=== PATIENT | female | born 1985 | race Caucasian/White ===

== ENCOUNTER 2025-03-09 14:12 | Emergency (ER) | payer MEDICAID ==
[~2025-03-09] VITALS: Ht 157.5 cm; Wt 52.2 kg
[2025-03-09 14:16] VITALS: O2SAT 99
[2025-03-09 14:18] VITALS: TEMP 37.1; O2SAT 100
[2025-03-09 15:06] LABS: BASOPHILS % 0.6 % (0.0-2.0); EOSINOPHILS % 1.2 % (0.0-5.0); HEMATOCRIT. 40.4 % (36.0-48.0); HEMOGLOBIN. 13.6 g/dL (12.0-16.0); LYMPHOCYTES % 17.3 % (20.0-50.0); MEAN CORPUSCULAR HEMOGLOBIN 32.7 pg (28.0-32.0); MEAN CORPUSCULAR HGB CONC 33.7 g/dL (31.0-37.0); MEAN PLATELET VOLUME 7.7 fl (7.4-10.4); MONOCYTES % 5.5 % (2.0-8.0); NEUTROPHILS % 75.4 % (40.0-76.0); PLATELET 330 x1000/uL (130-400); RED BLOOD CELL COUNT 4.16 mill/uL (4.2-5.4); RED CELL DISTRIBUTION WIDTH 12.9 % (11.6-14.6); WHITE BLOOD COUNT 7.9 x1000/uL (4.5-11.0)
[2025-03-09 15:30] LABS: CHLORIDE 105 mEq/L (98-107); SODIUM 140 mEq/L (136-145)
[2025-03-09 15:31] LABS: CARBON DIOXIDE 25 mEq/L (21-32)
[2025-03-09 15:37] LABS: CREATININE 0.8 mg/dL (0.6-1.0); GLUCOSE 103 mg/dL (70-105); UREA NITROGEN BLOOD 9 mg/dL (9-23)
[2025-03-09 15:39] LABS: ALANINE AMINOTRANSFERASE 14 IU/L (10-49); ALBUMIN 4.3 g/dL (3.2-4.8); ASPARTATE AMINOTRANSFERASE 22 IU/L (<34); BILIRUBIN DIRECT 0.2 mg/dL (<=3.0); BILIRUBIN TOTAL 0.8 mg/dL (0.1-1.0)
[2025-03-09] MEDS: SODIUM CHLORIDE 0.9% 1,000 ML IV ONE ×2 (15:47→17:12)
[2025-03-09 15:49] LABS: CLARITY URINE TURBID (CLEAR); COLOR URINE YELLOW (YELLOW); GLUCOSE URINE NEGATIVE (NEGATIVE); KETONES URINE 3+ (NEGATIVE); LEUKOCYTE ESTERASE URINE TRACE (NEGATIVE); NITRITE URINE NEGATIVE (NEGATIVE); OCCULT BLOOD URINE NEGATIVE (NEGATIVE); PH URINE 7.5 (4.5-8.0); PROTEIN URINE TRACE (NEGATIVE); SPECIFIC GRAVITY URINE 1.014 (1.005-1.030)
[2025-03-09] MEDS: DICYCLOMINE HCL 10MG/ML 2ML VIAL IM ONE (16:03)
[2025-03-09] MEDS: FAMOTIDINE 20MG/2ML VIAL IV ONE (16:04)
[2025-03-09] MEDS: KETOROLAC 30MG/ML VIAL IV ONE (16:04)
[2025-03-09] MEDS: METOCLOPRAMIDE HCL 10MG/2ML VIAL IV ONE (16:04)
[2025-03-09 16:32] LABS: WBC URINE NONE SEEN /hpf (0-2)
[2025-03-09 16:33] LABS: BACTERIA URINE NONE SEEN; RBC URINE NONE SEEN /hpf (0-2); SQUAMOUS EPITHELIAL CELL URINE 3+ /lpf (RARE/1+)
[2025-03-09 16:34] LABS: MUCUS URINE 1+ /lpf (< = 2+)
[2025-03-09] MEDS ORDERED: FAMO-135 MT (17:05)
[2025-03-09] MEDS ORDERED: ONDA-239 PO (17:05)
[2025-03-09] MEDS: ONDANSETRON HCL 4MG/2ML INJ IV ONE (17:12)
[2025-03-09] MEDS: MORPHINE SULFATE 4 MG/ML INJ (FOR IV/IM USE) IV ONE ×2 (19:10→20:11)
[2025-03-09] MEDS: ACETAMINOPHEN 1000MG/100ML 100 ML IV ONE (19:21)
[2025-03-09 20:11] VITALS: BP 166/89; PULSE 75; RESP 14
== END 2025-03-09 21:29 | disposition home or self-care (01) ==
LOC: ER 14:12
DX: R11.2 Nausea with vomiting, unspecified (principal); Z91.013 Allergy to seafood
CPT/HCPCS: 99284; 96365; 96375; 96361; 80076; 80048; 81003; 81025; 83690; 85025; 36415; 96372; 96376; J1885; J0500; J3490; J2765; J2405; J2270; J7030; J0131

== ENCOUNTER 2025-03-11 07:38 | Emergency (ER) | payer MEDICAID ==
[~2025-03-11] VITALS: Ht 165.1 cm; Wt 41.0 kg
[~2025-03-11 07:38] MED LIST: FAMO-135 MT; ONDA-239 PO
[2025-03-11 07:47] VITALS: O2SAT 97
[2025-03-11 08:07] LABS: BASOPHILS % 0.3 % (0.0-2.0); HEMATOCRIT. 42.6 % (36.0-48.0); HEMOGLOBIN. 14.6 g/dL (12.0-16.0); LYMPHOCYTES % 8.6 % (20.0-50.0); MEAN CORPUSCULAR HEMOGLOBIN 32.6 pg (28.0-32.0); MEAN CORPUSCULAR HGB CONC 34.2 g/dL (31.0-37.0); MEAN CORPUSCULAR VOLUME 95.4 fL (81.0-99.0); MEAN PLATELET VOLUME 7.7 fl (7.4-10.4); MONOCYTES % 6.8 % (2.0-8.0); NEUTROPHILS % 84.3 % (40.0-76.0); PLATELET 351 x1000/uL (130-400); RED BLOOD CELL COUNT 4.46 mill/uL (4.2-5.4); RED CELL DISTRIBUTION WIDTH 12.7 % (11.6-14.6); WHITE BLOOD COUNT 9.7 x1000/uL (4.5-11.0)
[2025-03-11 08:11] LABS: CHLORIDE 98 mEq/L (98-107); POTASSIUM 3.2 mEq/L (3.5-5.1); SODIUM 133 mEq/L (136-145)
[2025-03-11] MEDS: KETOROLAC 30MG/ML VIAL IV STA (08:12)
[2025-03-11] MEDS: ONDANSETRON HCL 4MG/2ML INJ IV STA (08:12)
[2025-03-11] MEDS: MAGNESIUM/ALUMINUM HYDROXIDE/SIMETHICONE 30ML UDC PO STA (08:12)
[2025-03-11 08:13] LABS: CALCIUM 10.5 mg/dL (8.7-10.4); CARBON DIOXIDE 21 mEq/L (21-32)
[2025-03-11] MEDS: ACETAMINOPHEN 325MG TABLET PO STA (08:13)
[2025-03-11] MEDS: SODIUM CHLORIDE 0.9% 1,000 ML IV ONE (08:17)
[2025-03-11 08:18] LABS: GLUCOSE 105 mg/dL (70-105); UREA NITROGEN BLOOD 11 mg/dL (9-23)
[2025-03-11 08:20] LABS: ALANINE AMINOTRANSFERASE 16 IU/L (10-49); ALBUMIN 4.9 g/dL (3.2-4.8); ASPARTATE AMINOTRANSFERASE 25 IU/L (<34); BILIRUBIN DIRECT 0.2 mg/dL (<=3.0); BILIRUBIN TOTAL 0.8 mg/dL (0.1-1.0)
[2025-03-11 08:21] LABS: PROTEIN TOTAL 7.9 g/dL (6.0-8.3)
[2025-03-11] MEDS: MORPHINE SULFATE 4 MG/ML INJ (FOR IV/IM USE) IV STA (08:22)
[2025-03-11 08:23] LABS: HCG SCREEN NEGATIVE
[2025-03-11] MEDS ORDERED: METO-293 MT (09:53)
[2025-03-11 10:04] VITALS: BP 116/77; PULSE 66; RESP 21; TEMP 36.8; O2SAT 98
== END 2025-03-11 10:10 | disposition home or self-care (01) ==
LOC: ER 07:38
DX: R10.31 Right lower quadrant pain (principal); R11.2 Nausea with vomiting, unspecified
CPT/HCPCS: 99285; 74176; 96374; 96375; 96361; 80076; 80048; 84703; 83690; 85025; 36415; J1885; J2405; J2270; J7030